=== PATIENT | male | born 1970 | race Caucasian/White ===

== ENCOUNTER → 2017-10-05 | Outpatient (CLI) | payer OTHER ==
[~2017-10-05] MED LIST: NO MEDS
== END | disposition home or self-care (01) ==
LOC: C.PATH 09:24
PROVIDERS: ATTEND Nurse Practitioner
DX: R59.9 Enlarged lymph nodes, unspecified (principal)

== ENCOUNTER → 2017-11-07 | Outpatient (CLI) | payer OTHER ==
--- NOTE | 2017-11-07 14:02 | DIAGNOSTIC IMAGING REPORT ---
ULTRASOUND GUIDED FINE NEEDLE ASPIRATION OF RIGHT LEVEL 3 CERVICAL LYMPH NODE CLINICAL HISTORY: CERVICAL LYMPHADENoPATHY COMPARISON STUDY: Neck ultrasound September 25, 2017. PROCEDURE: Sonography of the neck again demonstrated the mildly enlarged right level 3 cervical lymph node that measured 1.8 x 0.9 x 1.1 cm. This was targeted for fine needle aspiration. The procedure, risks and benefits were discussed with the patient and informed written consent was obtained. The procedure was performed by Dr. Baptiste following a timeout. Skin of the right neck was prepped and draped in sterile fashion and local anesthesia was achieved with 1% lidocaine. Under direct ultrasound guidance, 2 25-gauge fine needle aspirations of the right level 3 node were performed. Samples were obtained preliminarily adequate by pathology. Patient tolerated the procedure well and no immediate complications were evident. IMPRESSION: Ultrasound guided fine needle aspiration of 1.8 cm right level 3 cervical lymph node. Electronically signed by: Coleman Baptiste M.D. 11/07/2017 2:01 PM Dictated Date/Time: 11/07/2017 1:53 PM
== END | disposition home or self-care (01) ==
LOC: C.ULTR 12:38
DX: R59.0 Localized enlarged lymph nodes (principal)

== ENCOUNTER → 2018-02-28 | Outpatient (CLI) | payer OTHER ==
--- NOTE | 2018-02-28 11:18 | DIAGNOSTIC IMAGING REPORT ---
CHEST 2 VIEWS ROUTINE CLINICAL HISTORY: 47 years-old Male presenting with R50.9 Fever. TECHNIQUE: PA and lateral views of the chest were obtained. COMPARISON: 09/25/2017. FINDINGS: Cardiomediastinal silhouette normal. Lungs and pleural spaces clear. Osseous structures normal. Upper abdomen normal. IMPRESSION: 1. No acute cardiopulmonary disease. Electronically signed by: Hal Yung M.D. 02/28/2018 11:17 AM Dictated Date/Time: 02/28/2018 11:16 AM
== END | disposition home or self-care (01) ==
LOC: C.RAD1850 10:43
PROVIDERS: ATTEND Nurse Practitioner
DX: R50.9 Fever, unspecified (principal)